=== PATIENT | female | born 1960 | race Caucasian/White ===

== ENCOUNTER → 2021-08-22 12:26 | Outpatient (CLI) | payer OTHER, SELFPAY ==
--- NOTE | 2021-08-22 12:34 | EKG12_ITS ---
Test Reason : PRE OP Blood Pressure : / mmHG Vent. Rate : 060 BPM Atrial Rate : 060 BPM P-R Int : 192 ms QRS Dur : 080 ms QT Int : 416 ms P-R-T Axes : 049 000 045 degrees QTc Int : 416 ms Normal sinus rhythm Normal ECG Confirmed by KINGSTON CALDERON, GIOVANNA ([id number]), photo editor TAMIKO CURTIS ([id number]) on 08/23/2021 9:28:37 AM Referred By: Sirena Corbett Confirmed By:GIOVANNA ONOFRE MD
--- NOTE | 2021-08-22 13:41 | CT_ITS ---
STUDY: CT RIGHT LOWER EXTREMITY WITHOUT CONTRAST REASON FOR EXAM: Right knee osteoarthritis, preoperative planning. TECHNIQUE: Transaxial CT imaging of the lower extremity was performed. Coronal and sagittal images were reformatted. Individualized dose optimization techniques were used for this CT. COMPARISON: None. FINDINGS: Knee: There is arthrosis of the medial femorotibial compartment with marginal osteophytes, subchondral eburnation and joint space narrowing (coronal reconstructions 28, 29). There are small marginal osteophytes with preservation of joint space of the lateral femorotibial compartment. There are small marginal osteophytes and preservation of joint space of the patellofemoral compartment. Normal proximal tibiofibular articulation. There is a small joint effusion. The quadriceps tendon is grossly normal. The patellar tendon is grossly normal. Normal Hoffa''s fat pad. There is a popliteal cyst measuring approximately 5.3 cm in length (sagittal reconstruction 47). Hip: Unremarkable right hip articulation. Ankle: Normal tibiotalar, posterior subtalar, talonavicular and calcaneocuboid articulations. CT/Extremity Lower without Contra IMPRESSION: Right knee arthrosis. Electronically Signed: Casey Perez MD at 14:59 EDT Tel , Service support ,
--- NOTE | 2021-08-22 16:25 | RAD_ITS ---
STUDY: X-RAY CHEST REASON FOR EXAM: Female, 61 years old. PRE OP TECHNIQUE: PA and lateral views of the chest. COMPARISON: None. FINDINGS: The lungs are clear and expanded. There is no demonstrated pleural abnormality. Normal size heart. Normal mediastinum and oleksandr. Normal visualized pulmonary arteries. Normal visualized aortic arch and descending thoracic aorta. There is a dextroscoliosis of the thoracic spine. Normal visualized ribs, clavicles, and shoulders. There is no demonstrated abnormality of the visualized soft tissue structures of the upper abdomen. RAD/Chest PA and Lateral IMPRESSION: No active disease. Electronically Signed: Fran Cummings MD at 16:51 EDT Tel , Service support ,
== END ==
PROVIDERS: Referring Provider Physician Assistant Surgical; Visit Provider Physician Assistant Surgical
DX: Z01.810 Encounter for preprocedural cardiovascular examination (principal); M21.161 Varus deformity, not elsewhere classified, right knee; Z01.811 Encounter for preprocedural respiratory examination
CPT/HCPCS: 71046; 73700; 93005

== ENCOUNTER → 2021-10-26 16:15 | Outpatient (CLI) | payer OTHER, SELFPAY ==
--- NOTE | 2021-10-26 16:40 | RAD_ITS ---
STUDY: BONE LENGTH STUDIES SCANOGRAM. REASON FOR EXAM: Female, 61 years old. UNEQUAL LIMB LENGTH ACQUIRED FEMUR TECHNIQUE: AP views of both lower extremities were obtained. COMPARISON: None. FINDINGS: The left lower extremity is 1 cm shorter than the right lower extremity. The patient is status post right knee replacement. RAD/Bone Length IMPRESSION: Leg length discrepancy where the left lower extremity is 1 cm shorter than the right. Electronically Signed: Winston Matthew MD at 9:29 EST , Service support ,
[2021-10-26 17:30] LABS: Absolute Lymphocyte Count 2.64 X10^3/uL (0.83-4.51); Absolute Neutrophil Count 4.4 X10^3/uL (2.0-7.7); Basophil# 0.06 X10^3/uL; Basophil% 0.8 % (0-1); Eosinophil# 0.22 X10^3/uL; Eosinophils% 2.8 % (0-5); Hematocrit 38.8 % (37-47); Hemoglobin 12.4 g/dL (12.0-15.0); Lymphocyte # 2.64 X10^3/ul (0.83-4.51); Lymphocyte % 33.9 % (19-41); Mean Corpuscular Hgb 26.7 pg (27.0-32.0); Mean Corpuscular Volume 83.6 fL (81-99); Mean Platelet Vol. 9.6 fl (6.2-12.0); Monocyte# 0.49 X10^3/uL; Monocyte% 6.3 % (0-10); NRBC Flagged by Analyzer 0 % (0-5); Neutrophil # 4.35 X10^3/uL (2.7-7.7); Neutrophil % 55.9 % (47-70); Platelet Count 399 K/mm3 (150-450); RBC Distribution Width CV 14.5 % (11.6-14.6); Red Blood Count 4.64 M/mm3 (4.2-5.4); White Blood Count 7.8 K/mm3 (4.4-11.0)
[2021-10-26 17:43] LABS: Albumin, Serum 4.1 g/dL (3.2-5.0); Anion Gap 6 (5-15); BUN 14 mg/dL (7-18); BUN/Creat Ratio 21.6 RATIO (10-20); Calcium,Total 9.2 mg/dL (8.5-10.1); Chloride 105 mmol/L (98-107); Creatinine, Serum 0.65 mg/dL (0.55-1.02); EST Glomerular Filtration Rate 99 mL/min (>60); Est Glom Filt Rate - Afr Amer 120 mL/min (>60); Glucose 92 mg/dL (74-106); Potassium 3.7 mmol/L (3.5-5.1); Sodium Level 139 mmol/L (136-145)
== END ==
PROVIDERS: Referring Provider Specialist; Visit Provider Specialist
DX: Z01.818 Encounter for other preprocedural examination (principal); M21.759 Unequal limb length (acquired), unspecified femur
CPT/HCPCS: 36415; 77073; 80048; 82040; 85025

== ENCOUNTER → 2021-11-08 14:36 | Outpatient (CLI) | payer OTHER, SELFPAY | PROVIDERS: Referring Provider Specialist; Visit Provider Specialist | DX: Z20.828 Contact with and (suspected) exposure to other viral communicable diseases (principal) | CPT/HCPCS: 87635; U0005; U0003 ==